=== PATIENT | male | born 1995 | race Caucasian/White ===

== ENCOUNTER 2016-12-09 11:49 | Emergency (ER) | payer OTHER ==
[~2016-12-09] VITALS: Ht 172.7 cm; Wt 62.7 kg
[~2016-12-09 11:49] MED LIST: MINO65TA PO
[2016-12-09 11:56] VITALS: BP 135/86
[2016-12-09] MEDS ORDERED: OXYcodone/APAP 5/325MG TABLET PO ONE (14:30)
[2016-12-09] MEDS ORDERED: OXYcodone/APAP 5/325MG TABLET ONE (14:32)
== END 2016-12-09 16:38 | disposition home or self-care (01) ==
LOC: ED 16:30
DX: S20.212A Contusion of left front wall of thorax, initial encounter (principal); M25.532 Pain in left wrist; W17.89XA Other fall from one level to another, initial encounter; Y99.8 Other external cause status; Y93.23 Activity, snow (alpine) (downhill) skiing, snowboarding, sledding, tobogganing and snow tubing; Y92.89 Other specified places as the place of occurrence of the external cause
CPT/HCPCS: 29125; 71020; 71250